=== PATIENT | male | born 1980 | race Caucasian/White ===

== ENCOUNTER → 2023-02-17 10:21 | Outpatient (CLI) | payer OTHER, SELFPAY ==
--- NOTE | 2023-02-17 10:23 | DI.RAD.S_ITS ---
PROCEDURE: XR CHEST 2V INDICATIONS: 4d cough, right side rhonchi, Left flank pain w/cough/breath TECHNIQUE: 2 views of the chest were acquired. COMPARISON: None. FINDINGS: Surgical changes and devices: None. Lungs and pleura: Lungs are clear. No pleural effusions or pneumothorax. Mediastinum: Mediastinal contours are normal. Heart size is normal. Bones and chest wall: No suspicious bony abnormalities. Soft tissues appear unremarkable. IMPRESSION: No acute cardiopulmonary abnormalities or focal airspace disease. Dictated by: Billy Vincent M.D. on 02/17/2023 at 12:18 Approved by: Billy Vincent M.D. on 02/17/2023 at 12:18
== END ==
PROVIDERS: Referring Provider Student in an Organized Health Care Education/Training Program; Visit Provider Student in an Organized Health Care Education/Training Program
DX: R05.9 Cough, unspecified (principal); R07.81 Pleurodynia
CPT/HCPCS: 71046